=== PATIENT | female | born 1990 | race Caucasian/White ===

== ENCOUNTER 2016-08-12 08:18 | Emergency (ER) | payer OTHER ==
[2016-08-12] MEDS ORDERED: HYDROCODONE/ACETAMINOPHEN 5-325 MG TABLET PO ONE (09:17)
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
[2016-08-12 09:48] VITALS: BP 129/65
== END 2016-08-12 09:48 | disposition home or self-care (01) ==
LOC: ER 08:18
DX: M54.2 Cervicalgia (principal); R51 Headache; M54.5 Low back pain; V49.60XA Unspecified car occupant injured in collision with unspecified motor vehicles in traffic accident, initial encounter; Z91.018 Allergy to other foods
CPT/HCPCS: 70450; 72110; 72125; 99284